=== PATIENT | male | born 1965 | race Caucasian/White ===

== ENCOUNTER 2020-11-01 06:08 | Emergency (ER) | payer BC, SELFPAY ==
[2020-11-01] VITALS (9 sets, daily range): BP systolic 128–146; BP diastolic 79–86; PULSE 70–80; RESP 18; TEMP 36.9; O2SAT 96–100; BMI 25.8
--- NOTE | 2020-11-01 06:20 | ED_ITS ---
HPI - Nausea/Vomiting/Diarrhea <Shaun Chahal DO - Last Filed: 11/10/20 23:40> General Chief complaint: Nausea/Vomiting/Diarrhea Stated complaint: vomiting diarrhea since last night blood in stool Time Seen by Provider: 11/01/20 06:19 History of Present Illness HPI Narrative: 55-year-old male nonsmoker with noncontributory medical history presents with a chief complaint of generalized abdominal cramping and pain associated with multiple episodes of nausea and vomiting as well as to bloody stools. He was in his normal state of health until this evening when the above symptoms started. He states that he ate some food at a local [employer] restaurant any questions weather was bad or not. He denies recent international travel, exposure to other ill persons or recent antibiotics. He feels dizzy, weak and lightheaded. He states vomiting helped his abdominal discomfort but it quickly returned Related Data Previous Rx's Medication Instructions Recorded ondansetron 4 mg disintegrating 4 mg PO Q6H PRN #14 tab 11/01/20 tablet Allergies Allergy/AdvReac Type Severity Reaction Status Date / Time cephalexin [From Keflex] Allergy Verified 11/01/20 06:18 Review of Systems <Shaun Chahal DO - Last Filed: 11/10/20 23:40> Review of Systems Narrative: GENERAL: Denies chills, fatigue, malaise, fever, sweats. HEENT: Denies sinus pain, ear pain, sore throat, difficulty swallowing, dizziness. RESPIRATORY: Denies dyspnea, cough, wheezing, hemoptysis, sputum. CARDIOVASCULAR: Denies chest pain, palpitations, orthopnea, edema, GASTROINTESTINAL: See HPI : Denies dysuria, frequency, incontinence, hematuria, urinary retention. MUSCULOSKELETAL: denies weakness, joint pain, or bony pain SKIN: Denies rash, skin lesions, or other NEUROLOGIC: Denies weakness, headache, numbness, change in speech, confusion, seizures, incoordination. PSYCHIATRIC: No concerning psychosocial issues. 12 point review of systems is negative except for those stated above Patient History <Shaun Chahal DO - Last Filed: 11/10/20 23:40> Social History Smoking Status: Never smoker Exam <Shaun Chahal DO - Last Filed: 11/10/20 23:40> Narrative Exam Narrative: GENERAL: [55] year old patient appears stated age. Well- developed patient, in mild distress. HEAD: Atraumatic. Normocephalic. EYES: Pupils equal round and reactive. Extraocular motions intact. No scleral icterus. No injection or drainage. ENT: Nose without bleeding, purulent drainage. Throat without erythema, tonsillar hypertrophy or exudate. Airway patent. NECK: Trachea midline. Non tender CARDIOVASCULAR: Regular rate and rhythm without murmurs, gallops, or rubs. RESPIRATORY: Clear to auscultation. Breath sounds equal bilaterally. No wheezes, rales, or rhonchi. GASTROINTESTINAL: Abdomen soft, non-tender, nondistended. EXTREMITIES: No edema or joint tenderness. BACK: Nontender without deformity or crepitance. No flank tenderness. NEURO: AOx3. SKIN: No rash or erythema of visible areas Initial Vital Signs Initial Vital Signs: Vital Signs Pulse Rate 74 11/01/20 06:16 Pulse Oximetry 98 11/01/20 06:16 <Jose F Colindres DO - Last Filed: 11/01/20 10:03> Initial Vital Signs Initial Vital Signs: Vital Signs Pulse Rate 74 11/01/20 06:16 Pulse Oximetry 98 11/01/20 06:16 Course <Shaun Chahal DO - Last Filed: 11/10/20 23:40> Orders Ordered: Discontinued Medications Sodium Chloride (Normal Saline 0.9%) 1,000 mls @ 1,000 mls/hr IV BOLUS ONE Stop: 11/01/20 07:34 Last Infusion: 11/01/20 08:06 Dose: 0 mls/hr Documented by: Admin: 11/01/20 06:49 Dose: 1,000 mls/hr Documented by: DOM Metoclopramide HCl (Metoclopramide 10 Mg/2 Ml Inj) 10 mg IV NOW ONE Stop: 11/01/20 08:12 Last Admin: 11/01/20 09:07 Dose: 10 mg Documented by: VANIA Ondansetron HCl (Ondansetron 4 Mg/2 Ml Inj) 4 mg IV NOW ONE Stop: 11/01/20 06:36 Last Admin: 11/01/20 06:49 Dose: 4 mg Documented by: DOM Pantoprazole Sodium (Pantoprazole 40 Mg Vial) 40 mg IV NOW ONE Stop: 11/01/20 06:36 Last Admin: 11/01/20 06:49 Dose: 40 mg Documented by: DOM Consultations Consultation #1: [id number] - Patient signed out to Dr. Colindres for final disposition Vital Signs Vital signs: Vital Signs - 8 hr 11/01/20 06:16 11/01/20 06:17 11/01/20 06:18 Temperature 98.4 F Pulse Rate 74 70 72 Respiratory Rate 18 Blood Pressure 144/83 H 144/83 H Pulse Oximetry 98 100 98 11/01/20 06:30 11/01/20 07:00 11/01/20 07:30 Temperature Pulse Rate 71 77 74 Respiratory Rate Blood Pressure 142/82 H 142/84 H 128/79 Pulse Oximetry 99 97 96 11/01/20 08:00 Temperature Pulse Rate 73 Respiratory Rate Blood Pressure Pulse Oximetry 96 <Jose F Colindres DO - Last Filed: 11/01/20 10:03> Orders Ordered: Discontinued Medications Sodium Chloride (Normal Saline 0.9%) 1,000 mls @ 1,000 mls/hr IV BOLUS ONE Stop: 11/01/20 07:34 Last Infusion: 11/01/20 08:06 Dose: 0 mls/hr Documented by: Admin: 11/01/20 06:49 Dose: 1,000 mls/hr Documented by: DOM Metoclopramide HCl (Metoclopramide 10 Mg/2 Ml Inj) 10 mg IV NOW ONE Stop: 11/01/20 08:12 Last Admin: 11/01/20 09:07 Dose: 10 mg Documented by: VANIA Ondansetron HCl (Ondansetron 4 Mg/2 Ml Inj) 4 mg IV NOW ONE Stop: 11/01/20 06:36 Last Admin: 11/01/20 06:49 Dose: 4 mg Documented by: DOM Pantoprazole Sodium (Pantoprazole 40 Mg Vial) 40 mg IV NOW ONE Stop: 11/01/20 06:36 Last Admin: 11/01/20 06:49 Dose: 40 mg Documented by: DOM Vital Signs Vital signs: Vital Signs - 8 hr 11/01/20 06:16 11/01/20 06:17 11/01/20 06:18 Temperature 98.4 F Pulse Rate 74 70 72 Respiratory Rate 18 Blood Pressure 144/83 H 144/83 H Pulse Oximetry 98 100 98 11/01/20 06:30 11/01/20 07:00 11/01/20 07:30 Temperature Pulse Rate 71 77 74 Respiratory Rate Blood Pressure 142/82 H 142/84 H 128/79 Pulse Oximetry 99 97 96 11/01/20 08:00 Temperature Pulse Rate 73 Respiratory Rate Blood Pressure Pulse Oximetry 96 MDM - Nausea/Vomiting/Diarrhea <Shaun Chahal DO - Last Filed: 11/10/20 23:40> Lab Data Result diagrams: 11/01/20 06:28 11/01/20 06:28 Labs: Lab Results 11/01/20 11/01/20 Range/Units 06:28 06:28 WBC 16.8 H (4.5-11.0) X10^3/uL RBC 5.18 (4.5-5.9) X10^6/uL Hgb 16.2 (13.5-17.5) g/dL Hct 46.5 (41-53) % MCV 89.9 (80-100) fL MCH 31.3 (26-34) PG MCHC 34.8 (30-36) % RDW 12.9 (11.6-14.8) % Plt Count 235 (150-400) X10^3/uL Neut % (Auto) 91.7 H (50-75) % Lymph % (Auto) 3.2 L (25-40) % [place] % (Auto) 4.9 (3-14) % Eos % (Auto) 0.0 L (2-4) % Baso % (Auto) 0.2 (0-2) % Neut # (Auto) 03194 H (0316-5323) /uL Lymph # (Auto) 500 L (0235-4956) /uL [place] # (Auto) 800 (0-900) /uL Eos # (Auto) 0 (0-450) /uL Baso # (Auto) 0 (0-100) /uL Sodium 131 L (137-145) mmol/L Potassium 4.4 (3.4-5.1) mmol/L Chloride 99 (98-107) mmol/L Carbon Dioxide 23 (22-32) mmol/L BUN 15 (9-20) mg/dL Creatinine 0.86 (0.66-1.25) mg/dL Estimated GFR > 60.0 (>60) mL/min BUN/Creatinine Ratio 17.4 (6-22) Glucose 133 H (70-100) mg/dL Calcium 9.3 (8.4-10.2) mg/dL Total Bilirubin 1.1 (0.2-1.3) mg/dL AST 33 (17-59) IU/L ALT 22 (<50) IU/L Alkaline Phosphatase 45 (38-126) U/L Total Protein 6.9 (6.3-8.2) g/dL Albumin 4.3 (3.5-5.0) g/dL Globulin 2.6 (1.7-4.1) g/dL Albumin/Globulin Ratio 1.7 (1.0-2.8) Lipase 33 (23-300) U/L Urine Dip Bedside Urine Glucose Negative Bedside Urine Bilirubin - Negative Bedside Urine Ketone - Negative Urine Specific [place] 1.020 Bedside Urine Occult Blood - Negative Bedside Urine pH 6.0 Bedside Urine Protein - Negative Bedside Urine Urobilinogen - Negative Bedside Urine Nitrite - Negative Bedside Urine Leukocytes - Negative Esterase <Jose F Colindres DO - Last Filed: 11/01/20 10:03> Lab Data Labs: Lab Results 11/01/20 11/01/20 Range/Units 06:28 06:28 WBC 16.8 H (4.5-11.0) X10^3/uL RBC 5.18 (4.5-5.9) X10^6/uL Hgb 16.2 (13.5-17.5) g/dL Hct 46.5 (41-53) % MCV 89.9 (80-100) fL MCH 31.3 (26-34) PG MCHC 34.8 (30-36) % RDW 12.9 (11.6-14.8) % Plt Count 235 (150-400) X10^3/uL Neut % (Auto) 91.7 H (50-75) % Lymph % (Auto) 3.2 L (25-40) % [place] % (Auto) 4.9 (3-14) % Eos % (Auto) 0.0 L (2-4) % Baso % (Auto) 0.2 (0-2) % Neut # (Auto) 67515 H (9744-5757) /uL Lymph # (Auto) 500 L (3786-7712) /uL [place] # (Auto) 800 (0-900) /uL Eos # (Auto) 0 (0-450) /uL Baso # (Auto) 0 (0-100) /uL Sodium 131 L (137-145) mmol/L Potassium 4.4 (3.4-5.1) mmol/L Chloride 99 (98-107) mmol/L Carbon Dioxide 23 (22-32) mmol/L BUN 15 (9-20) mg/dL Creatinine 0.86 (0.66-1.25) mg/dL Estimated GFR > 60.0 (>60) mL/min BUN/Creatinine Ratio 17.4 (6-22) Glucose 133 H (70-100) mg/dL Calcium 9.3 (8.4-10.2) mg/dL Total Bilirubin 1.1 (0.2-1.3) mg/dL AST 33 (17-59) IU/L ALT 22 (<50) IU/L Alkaline Phosphatase 45 (38-126) U/L Total Protein 6.9 (6.3-8.2) g/dL Albumin 4.3 (3.5-5.0) g/dL Globulin 2.6 (1.7-4.1) g/dL Albumin/Globulin Ratio 1.7 (1.0-2.8) Lipase 33 (23-300) U/L Urine Dip Bedside Urine Glucose Negative Bedside Urine Bilirubin - Negative Bedside Urine Ketone - Negative Urine Specific [place] 1.020 Bedside Urine Occult Blood - Negative Bedside Urine pH 6.0 Bedside Urine Protein - Negative Bedside Urine Urobilinogen - Negative Bedside Urine Nitrite - Negative Bedside Urine Leukocytes - Negative Esterase MDM Narrative Medical decision making narrative: Dr colindres: Received turned over. Reviewed patient's history and physical exam. Reviewed patient's labs. Performed my own independent limited exam. Patient has tolerated small amount oral intake. He has not had any diarrhea since being here in the emergency department. He states he still having some abdominal cramping but feel somewhat better. Unsure the exact etiology however we will hold on any antibiotics for now. Will send home with nausea medication. He was given return precautions and follow-up instructions. He expressed understanding and agreement. Discharge Plan Departure Patient Disposition: Home Clinical Impression: Nausea, Vomiting, and Diarrhea Instructions: Diarrhea, Nausea and Vomiting-Adult Activity Restrictions/Additional Instructions: I recommend that you increase your fluid intake but drinking small amounts of fluid over longer periods of time and also use the nausea medication as needed. Return to the emergency department for any new or worsening symptoms Prescriptions: New ondansetron 4 mg tablet,disintegrating 4 mg PO Q6H PRN (Reason: nausea and vomiting) Qty: 14 RF: 0
[2020-11-01 06:48] LABS: Add Manual Diff / Slide Review NO; Basophils Absolute Auto 0 /uL (0-100); Basophils Percent Auto 0.2 % (0-2); Eosinophils Absolute Auto 0 /uL (0-450); Hematocrit 46.5 % (41-53); Hemoglobin 16.2 g/dL (13.5-17.5); Lymphocytes Absolute Auto 500 /uL (1100-4500); Lymphocytes Percent Auto 3.2 % (25-40); Mean Corpuscular HGB Conc 34.8 % (30-36); Mean Corpuscular Hemoglobin 31.3 PG (26-34); Mean Corpuscular Volume 89.9 fL (80-100); Monocytes Absolute Auto 800 /uL (0-900); Monocytes Percent Auto 4.9 % (3-14); Neutrophils Absolute Auto 15400 /uL (1500-7000); Neutrophils Percent Auto 91.7 % (50-75); Platelet Count 235 X10^3/uL (150-400); Red Blood Cell Count 5.18 X10^6/uL (4.5-5.9); Red Cell Distribution Width 12.9 % (11.6-14.8); White Blood Cell Count 16.8 X10^3/uL (4.5-11.0)
[2020-11-01] MEDS: PANTOPRAZOLE 40 MG VIAL IV (06:49)
[2020-11-01] MEDS: SODIUM CHLORIDE 0.9% 1,000 ML 1000 ML IV (06:49)
[2020-11-01] MEDS: ONDANSETRON 4 MG/2 ML INJ IV (06:49)
[2020-11-01 06:50] LABS: Alanine Aminotransferase 22 IU/L (<50); Albumin 4.3 g/dL (3.5-5.0); Albumin Globulin Ratio 1.7 (1.0-2.8); Alkaline Phosphatase 45 U/L (38-126); Aspartate Aminotransferase 33 IU/L (17-59); BUN Creatinine Ratio 17.4 (6-22); Bilirubin Total 1.1 mg/dL (0.2-1.3); Blood Urea Nitrogen 15 mg/dL (9-20); Calcium 9.3 mg/dL (8.4-10.2); Carbon Dioxide 23 mmol/L (22-32); Chloride 99 mmol/L (98-107); Estimated Glomerular Filt Rate > 60.0 mL/min (>60); Globulin 2.6 g/dL (1.7-4.1); Glucose 133 mg/dL (70-100); HEMOLYSIS 35 (0-50); Lipase 33 U/L (23-300); Potassium 4.4 mmol/L (3.4-5.1); Sodium 131 mmol/L (137-145); Total Protein 6.9 g/dL (6.3-8.2)
[2020-11-01] MEDS: METOCLOPRAMIDE 10 MG/2 ML INJ IV (09:07)
== END 2020-11-01 10:37 | disposition home or self-care (01) ==
PROVIDERS: Emergency Medicine; Emergency Provider Emergency Medicine
DX: R11.2 Nausea with vomiting, unspecified (principal); R19.7 Diarrhea, unspecified; K92.1 Melena
CPT/HCPCS: 36415; 80053; 81003; 83690; 85025; 96361; 96374; 96375; 99284; C9113; J2405; J2765